=== PATIENT | male | born 1990 | race Caucasian/White ===

== ENCOUNTER 2019-11-05 21:23 | Emergency (ER) | payer SELFPAY ==
[2019-11-05] MEDS ORDERED: Lactated Ringers 1,000 ML IV ONE (21:32)
[2019-11-05] MEDS ORDERED: Sodium Chloride 0.9% 10 ML Syringe FLUSH PRN (21:32)
--- NOTE | 2019-11-05 21:40 | EDM.PDOC ---
ED HPI GENERAL MEDICAL PROBLEM - General Chief Complaint: General Stated Complaint: heat exhaustion Time Seen by Provider: 11/05/19 21:23 - History of Present Illness INITIAL COMMENTS - FREE TEXT/NARRATIVE: Patient comes into the emergency department with complaints of exhaustion via EMS. 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 He went to the bathroom to try to cool off. He did go outside and had coworkers pouring water on him. He became very pale not responding to other individuals around the ended up calling 911. Patient was alert and oriented by the time EMS arrived on scene but was very diaphoretic. Patient states that he was nauseated for short period of time but he states that that has resolved. Patient refused to let EMS placed in an IV states that he had a bad history of that when he was hospitalized previously. Patient currently denies any chest pain, shortness of breath, dizziness, lightheadedness, blurred vision, abdominal concerns, or peripheral edema. Patient denies any recent COVID-19 concerns or exposures. Is been relatively healthy and has no other complaints at the present time. Onset: Today - Related Data Allergies Allergy/AdvReac Type Severity Reaction Status Date / Time hydrocodone Allergy Hallucinati Verified 11/05/19 21:29 ons Home Meds: Home Meds buPROPion [Wellbutrin SR] 150 mg PO DAILY 11/05/19 [History] ED ROS GENERAL - Review of Systems Review Of Systems: See Below Constitutional: Reports: No Symptoms HEENT: Reports: No Symptoms Respiratory: Reports: No Symptoms Cardiovascular: Reports: No Symptoms Musculoskeletal: Reports: No Symptoms Skin: Reports: No Symptoms Neurological: Reports: No Symptoms Psychiatric: Reports: No Symptoms Hematologic/Lymphatic: Reports: No Symptoms Immunologic: Reports: No Symptoms ED EXAM, GENERAL - Physical Exam Exam: See Below Exam Limited By: No Limitations General Appearance: Alert, WD/WN, No Apparent Distress Eye Exam: Bilateral Eye: EOMI, PERRL Head: Atraumatic, Normocephalic Neck: Normal Inspection, Supple, Non-Tender Respiratory/Chest: No Respiratory Distress, Lungs Clear, Normal Breath Sounds, No Accessory Muscle Use, Chest Non-Tender Cardiovascular: Normal Peripheral Pulses, Regular Rate, Rhythm, No Edema Back Exam: Normal Inspection, Full Range of Motion Extremities: Normal Inspection, Normal Range of Motion, Non-Tender, Normal Capillary Refill Neurological: Alert, Oriented, Normal Gait Psychiatric: Normal Affect, Normal Mood Skin Exam: Warm, Dry, Intact, Normal Color Course - Vital Signs Last Recorded V/S: Last Vital Signs Temp 37.4 C 11/05/19 21:40 Pulse 92 11/05/19 21:40 Resp 16 11/05/19 21:40 BP 113/69 11/05/19 21:40 Pulse Ox 95 11/05/19 21:40 - Orders/Labs/Meds Orders: Active Orders 24 hr Category Date Time Status Sodium Chloride 0.9% [Saline Flush] Med 11/05/19 21:32 Active 10 ml FLUSH ASDIRECTED PRN Peripheral IV Insertion Adult [OM.PC] Stat Oth 11/05/19 21:32 Ordered Medication Orders Sodium Chloride (Saline Flush) 10 ml FLUSH ASDIRECTED PRN PRN Reason: Keep Vein Open Meds: Medications Generic Name Dose Route Start Last Admin Trade Name Freq PRN Reason Stop Dose Admin Sodium Chloride 10 ml 11/05/19 21:32 Saline Flush FLUSH ASDIRECTED PRN Keep Vein Open Discontinued Medications Generic Name Dose Route Start Last Admin Trade Name Freq PRN Reason Stop Dose Admin Lactated Ringer's 1,000 mls @ 1,000 mls/hr 11/05/19 21:32 11/05/19 21:36 Ringers, Lactated IV 11/05/19 22:31 1,000 mls/hr ONETIME ONE Administration Departure - Departure Time of Disposition: 22:30 Disposition: Home, Self-Care 01 Condition: Good Clinical Impression: Heat exhaustion Qualifiers: Encounter type: initial encounter Qualified Code(s): T67.5XXA - Heat exhaustion, unspecified, initial encounter - Discharge Information *PRESCRIPTION DRUG MONITORING PROGRAM REVIEWED*: Not Applicable *COPY OF PRESCRIPTION DRUG MONITORING REPORT IN PATIENT NIRALI: Not Applicable Instructions: Heat Exhaustion Referrals: Mecca Ryan NP [Primary Care Provider] - Forms: ED Department Discharge, ED Return to Work/School Form Additional Instructions: 1. rest 2. increase your water intake 3. Continue all at home medications 4. Activity and diet as tolerated 5. Can take over the counter Tylenol or ibuprofen for any pain or discomfort 6. Follow up with PCP if symptoms continue, return, or progress 7. Call with any questions or concerns Sepsis Event Note (ED) - Focused Exam Vital Signs: Vital Signs Temp Pulse Resp BP Pulse Ox 11/05/19 21:40 37.4 C 92 16 113/69 95 - My Orders Last 24 Hours: My Active Orders 11/05/19 21:32 Sodium Chloride 0.9% [Saline Flush] 10 ml FLUSH ASDIRECTED PRN Peripheral IV Insertion Adult [OM.PC] Stat - Assessment/Plan Last 24 Hours: My Active Orders 11/05/19 21:32 Sodium Chloride 0.9% [Saline Flush] 10 ml FLUSH ASDIRECTED PRN Peripheral IV Insertion Adult [OM.PC] Stat Assessment:: 1. heat exhaustion Plan: 1. IV initiated in the emergency department 2. IV fluids provided 3. Patient and nursing staff was updated regarding the plan of care 4. Education provided the patient regarding activity, diet, rest, [id number] medication modalities, and follow-up care was provided 5. Patient and family are agreeable to the above plan of care 6. All questions and concerns were addressed with the patient and family prior to discharge
== END 2019-11-05 22:44 | disposition home or self-care (01) ==
LOC: VM.ED 21:23
DX: T67.5XXA Heat exhaustion, unspecified, initial encounter (principal); Z88.5 Allergy status to narcotic agent; Z79.899 Other long term (current) drug therapy
CPT/HCPCS: 99284; J7120; 99283-GF

== ENCOUNTER 2021-05-11 20:54 | Emergency (ER) | payer SELFPAY ==
[2021-05-11] MEDS ORDERED: Acetaminophen 500 MG Tab PO ONE (21:08)
[2021-05-11] MEDS ORDERED: LORazepam 1 MG Tab PO ONE (21:09)
[2021-05-11] MEDS ORDERED: buPROPion 150 MG Tab.ER PO ONE (21:11)
== END 2021-05-11 22:11 | disposition home or self-care (01) ==
LOC: VM.ED 20:54
DX: U07.1 COVID-19 (principal); F41.0 Panic disorder [episodic paroxysmal anxiety]; Z88.5 Allergy status to narcotic agent
CPT/HCPCS: 99283; A9270-GY

== ENCOUNTER 2021-10-31 21:24 | Emergency (ER) | payer BC | END 2021-10-31 21:48 | disposition home or self-care (01) | LOC: VM.ED 21:24 | DX: R06.02 Shortness of breath (principal); Z88.5 Allergy status to narcotic agent; Z79.899 Other long term (current) drug therapy | CPT/HCPCS: 99282; 99283 ==

== ENCOUNTER 2022-11-07 18:18 | Emergency (ER) | payer BC, OTHER ==
[2022-11-07] MEDS ORDERED: Ibuprofen 200 MG Tab PO ONE (18:58)
[2022-11-07] MEDS ORDERED: Take Home: Naproxen 500 MG Tab, 4 Tab Pack PO ONE (19:52)
== END 2022-11-07 20:00 | disposition home or self-care (01) ==
LOC: VM.ED 18:18
DX: S20.219A Contusion of unspecified front wall of thorax, initial encounter (principal); Z88.5 Allergy status to narcotic agent; Z79.899 Other long term (current) drug therapy; W22.8XXA Striking against or struck by other objects, initial encounter; Y99.0 Civilian activity done for income or pay
CPT/HCPCS: 71046; 99283; 99284; A9270-GY

== ENCOUNTER 2023-05-08 01:45 | Emergency (ER) | payer SELFPAY | END 2023-05-08 02:21 | disposition home or self-care (01) | LOC: VM.ED 01:45 | DX: S46.912A Strain of unspecified muscle, fascia and tendon at shoulder and upper arm level, left arm, initial encounter (principal); R07.89 Other chest pain; G58.9 Mononeuropathy, unspecified; Z79.899 Other long term (current) drug therapy; Z88.5 Allergy status to narcotic agent; X58.XXXA Exposure to other specified factors, initial encounter | CPT/HCPCS: 93005; 99284 ==

== ENCOUNTER 2023-07-01 23:45 | Emergency (ER) | payer SELFPAY ==
[2023-07-02] MEDS: Sodium Chloride 0.9% 1,000 ML IV ONE (00:15)
[2023-07-02] MEDS: Ondansetron 4 MG/2 ML SDV IVPUSH ONE (00:16)
[2023-07-02 00:17] LABS: BASOPHILS PERCENT AUTO 0.1 % (0.2-1.2); HEMATOCRIT 41.6 % (40.0-52.0); HEMOGLOBIN 14.3 g/dL (14.0-18.0); IMMATURE GRAN ABSOLUTE AUTO 0.01 x10^3/uL (0.00-0.07); LYMPHOCYTES ABSOLUTE AUTO 0.4 x10^3/uL (1.0-4.8); MEAN CORPUSCULAR HEMOGLOBIN 29.8 pg (26.0-32.0); MEAN CORPUSCULAR HGB CONC 34.4 g/dL (32.0-36.0); MEAN CORPUSCULAR VOLUME 86.7 fL (78.0-93.0); MONOCYTES ABSOLUTE AUTO 0.5 x10^3/uL (0.0-0.8); MONOCYTES PERCENT AUTO 6.7 % (2.0-11.0); NEUTROPHILS ABSOLUTE AUTO 5.9 x10^3/uL (1.8-7.7); NEUTROPHILS PERCENT AUTO 87.9 % (50.0-80.0); PLATELET COUNT,PLT 196 x10^3/uL (130-400); WHITE BLOOD CELL COUNT,WBC 6.8 x10^3/uL (4.0-10.0)
[2023-07-02 00:23] LABS: LYMPHOCYTES PERCENT AUTO 5.2 % (25.0-50.0)
[2023-07-02 00:30] LABS: A/G RATIO 1.23; ALBUMIN 3.8 g/dL (3.4-5.0); BILIRUBIN TOTAL 0.7 mg/dL (0.2-1.0); C-REACTIVE PROTEIN 8.39 mg/dL (<=0.50); CALCIUM 9.2 mg/dL (8.5-10.1); CREATININE 1.5 mg/dL (0.70-1.30); EST CRCL DRUG DOSING (CG) 80.64 mL/min; POTASSIUM,K 3.7 mmol/L (3.5-5.1); PROTEIN TOTAL,TP 6.9 g/dL (6.4-8.2)
[2023-07-02 00:31] LABS: ANION GAP 15.7 mmol/L (5-15)
[2023-07-02 00:40] LABS: APPEARANCE,URINE CLEAR (CLEAR); BILIRUBIN,URINE NEGATIVE (NEGATIVE); COLOR,URINE YELLOW (YELLOW); GLUCOSE,URINE NEGATIVE (NEGATIVE); KETONES,URINE NEGATIVE (NEGATIVE); LEUKOCYTE ESTERASE,URINE NEGATIVE (NEGATIVE); NITRITE,URINE NEGATIVE (NEGATIVE); OCCULT BLOOD,URINE NEGATIVE (NEGATIVE); PH,URINE 5.5 (5.0-8.0); PROTEIN,URINE TRACE mg/dL (NEGATIVE); UROBILINOGEN,URINE 0.2 EU/dL (0.2)
[2023-07-02 00:51] LABS: BACTERIA,URINE NOT SEEN /HPF (NOT SEEN); MUCUS,URINE FEW /LPF (NOT SEEN); RBC,URINE 0-5 /HPF (NOT SEEN); SQUAMOUS EPITHELIAL CELLS,UR NOT SEEN /HPF (NOT SEEN); WBC,URINE 0-5 /HPF (NOT SEEN)
[2023-07-02] MEDS: Take Home: Ondansetron 4 MG Tab.DIS, 5 Tab Pack PO ONE (01:10)
== END 2023-07-02 01:23 | disposition home or self-care (01) ==
LOC: VM.ED 23:45
DX: K52.9 Noninfective gastroenteritis and colitis, unspecified (principal); Z88.6 Allergy status to analgesic agent
CPT/HCPCS: 80053; 81001; 83690; 85025; 86140; 96361; 96374; 99284-25; J2405; J7030; Q0162